=== PATIENT | female | born 1980 | race Caucasian/White ===

== ENCOUNTER 2024-01-15 19:22 | Emergency (ER) | payer OTHER, MEDICAID ==
[2024-01-15] MEDS ORDERED: Ondansetron ODT 4 MG TAB ONE (20:00)
[2024-01-15] MEDS ORDERED: Lorazepam 2 MG/ML VIAL ONE (21:55)
== END 2024-01-15 22:07 | disposition home or self-care (01) ==
LOC: CSHERS 19:22
DX: G40.909 Epilepsy, unspecified, not intractable, without status epilepticus (principal); F43.0 Acute stress reaction
CPT/HCPCS: 96374; 99284; J2060; Q0162